=== PATIENT | male | born 1935 | race Caucasian/White ===

== ENCOUNTER 2018-04-09 11:07 | Outpatient (CLI) | payer MEDICARE ==
[2018-04-09] MEDS ORDERED: ISOVUE-370 76%-LOCM 1 ML ONE (15:20)
== END 2018-04-09 11:08 | disposition home or self-care (01) ==
LOC: BICCT 11:07
PROVIDERS: ATTEND Urology
DX: R31.29 Other microscopic hematuria (principal); K41.90 Unilateral femoral hernia, without obstruction or gangrene, not specified as recurrent; K76.89 Other specified diseases of liver; K57.30 Diverticulosis of large intestine without perforation or abscess without bleeding; K56.699 Other intestinal obstruction unspecified as to partial versus complete obstruction
CPT/HCPCS: 74178